=== PATIENT | male | born 2000 ===

== ENCOUNTER 2019-09-25 19:28 | Emergency (ER) | payer SELFPAY ==
[2019-09-25 20:11] LABS: Absolute Lymphocytes (CBC) 1.4 K/uL (0.7-4.9); Basophils % 0.6 % (0-1.3); Hematocrit 40.5 % (39.6-49.0); Lymphocytes % 24.9 % (15.3-44.8); MPV 9.8 fL (7.6-11.3); RBC Red Blood Cell Count 4.28 M/uL (4.33-5.43)
[2019-09-25 20:15] LABS: Protime INR 1.02
[2019-09-25 20:17] LABS: Urine Blood 2+ (NEG); Urine Glucose NEGATIVE (NEG); Urine Protein 1+ (NEG); Urine Specific Gravity 1.025 (1.005-1.030); Urine pH 5.5 (5.0-7.0)
[2019-09-25 20:30] LABS: ALT/SGPT 15 U/L (12-78); AST/SGOT 15 U/L (15-37); Albumin 3.9 g/dL (3.4-5.0); Alkaline Phosphatase 60 U/L (45-117); BUN Blood Urea Nitrogen 9 mg/dL (7-18); Bicarbonate 22 mmol/L (21-32); Bilirubin Direct 0.2 mg/dL (0-0.2); Bilirubin Total 0.8 mg/dL (0.2-1.0); CKMB Creatine Kinase MB < 1.0 ng/mL (0.3-3.6); Creatine Phosphokinase 86 U/L (39-308); Glucose Level 104 mg/dL (74-106); Lipase 78 U/L (73-393); Magnesium 2.5 mg/dL (1.8-2.4); Potassium 3.4 mmol/L (3.5-5.1); Sodium Level 138 mmol/L (136-145); Troponin (Emerg Dept Use Only) < 0.02 ng/mL (0.0-0.045)
[2019-09-25 20:49] LABS: Barbiturates NEGATIVE (NEGATIVE); Benzodiazepines NEGATIVE (NEGATIVE); Cocaine NEGATIVE (NEGATIVE); METHAMPHETAM NEGATIVE (NEGATIVE); Methadone NEGATIVE (NEGATIVE); Opiates NEGATIVE (NEGATIVE); Phencyclidine NEGATIVE (NEGATIVE); THC Cannibis POSITIVE (NEGATIVE)
[2019-09-25] MEDS ORDERED: DIVALPROEX DR 250 MG TAB PO ONE (21:04)
--- NOTE | 2019-09-25 22:29 | ER ---
Nurse's Notes [facility] Name: Zach Kaur Age: 19 yrs Sex: Male : 2000 Arrival Date: 09/25/2019 Time: 19:33 Bed 24 Private MD: Diagnosis: Epilepsy and recurrent seizures Presentation: 09/24 19:35 Chief complaint: EMS states: patient while driving home had a seizure an hour ago rr5 witnessed by his family member. last attack of seizure about couple of years ago. months ago his medication run out, just recently he got filled the medication. Coronavirus screen: Proceed with normal triage. Ebola Screen: Patient negative for fever greater than or equal to 101.5 degrees Fahrenheit, and additional compatible Ebola Virus Disease symptoms Patient denies exposure to infectious person. Patient denies travel to an Ebola-affected area in the 21 days before illness onset. Initial Sepsis Screen: Does the patient meet any 2 criteria? No. Patient's initial sepsis screen is negative. Does the patient have a suspected source of infection? No. Patient's initial sepsis screen is negative. Risk Assessment: Do you want to hurt yourself or someone else? Patient reports no desire to harm self or others. Onset of symptoms was September 25, 2019. 19:35 Method Of Arrival: EMS: [facility] rr5 19:35 Acuity: ADALI 3 rr5 19:35 Note CBG from EMS 141 mg/Dl, T 99.0F. rr5 Triage Assessment: 20:48 General: Behavior is calm, cooperative. rv Historical: - Allergies: 19:35 No Known Allergies; rr5 - Home Meds: 19:35 divalproex oral oral [Active]; rr5 - PMHx: 19:35 Seizures; rr5 - PSHx: 19:35 None; rr5 - Immunization history:: Adult Immunizations unknown. - Social history:: Smoking status: Reported history of juuling and/or vaping. Screenin:48 Abuse screen: Denies threats or abuse. Denies injuries from another. Nutritional rv screening: No deficits noted. Tuberculosis screening: No symptoms or risk factors identified. Fall Risk None identified. Assessment: 20:00 General: Appears comfortable, Behavior is calm, cooperative. Pain: Denies pain. Neuro: rv Level of Consciousness is awake, alert, obeys commands, Oriented to person, place, time, situation. Cardiovascular: Patient's skin is warm and dry. Rhythm is sinus rhythm. Respiratory: Airway is patent Respiratory effort is even, unlabored, Breath sounds are clear bilaterally. Derm: Skin is intact. 21:00 Reassessment: Patient appears in no apparent distress at this time. No changes from rr5 previously documented assessment. Patient is alert, oriented x 3, equal unlabored respirations, skin warm/dry/pink. awaiting for results. 22:00 Reassessment: Patient appears in no apparent distress at this time. Patient and/or rr5 family updated on plan of care and expected duration. Pain level reassessed. Patient is alert, oriented x 3, equal unlabored respirations, skin warm/dry/pink. no seizure activity noted. 23:00 Reassessment: Patient appears in no apparent distress at this time. Patient is alert, rr5 oriented x 3, equal unlabored respirations, skin warm/dry/pink. discharge instruction given and explained without complaints made. Patient states symptoms have improved. Vital Signs: 19:35 BP 112 / 66; Pulse 84; Resp 19; Temp 98.1; Pulse Ox 96% ; Weight 54.43 kg; Height 5 ft. rr5 8 in. (172.72 cm); Pain 4/10; 20:00 BP 106 / 71; Pulse 69; Resp 15; Pulse Ox 100% ; rr5 20:49 BP 102 / 57; Pulse 67; Resp 13; Pulse Ox 96% on R/A; rv 21:56 BP 104 / 60; Pulse 62; Resp 14; Temp 98.; Pulse Ox 100% on R/A; sg 23:00 BP 110 / 75; Pulse 72; Resp 16; Pulse Ox 98% on R/A; rr5 19:35 Body Mass Index 18.25 (54.43 kg, 172.72 cm) rr5 Vivek Coma Score: 20:48 Eye Response: spontaneous(4). Verbal Response: oriented(5). Motor Response: obeys rv commands(6). Total: 15. ED Course: 19:33 Patient arrived in ED. rr5 19:35 Kvng Waddell RN is Primary Nurse. rr5 19:35 Maintain EMS IV. Dressing intact. Good blood return noted. Site clean \T\ dry. Gauge \T\ rr 5 site: G18 right AC. 19:38 Triage completed. rr5 19:40 Arm band placed on right wrist. rr5 19:41 Freddie Flores MD is Attending Physician. tw4 20:48 Patient has correct armband on for positive identification. Placed in gown. Bed in low rv position. Call light in reach. Side rails up X2. Seizure precautions initiated. radiation monitor on. Pulse ox on. NIBP on. 20:50 Primary Nurse role handed off by Kvng Waddell RN rv 20:50 Sang Eisenberg RN is Primary Nurse. rv 20:56 Kvng Waddell RN is Primary Nurse. rr5 21:42 Primary Nurse role handed off by Kvng Waddell RN sg 21:42 Brian Urban RN is Primary Nurse. sg 22:28 Anoop Felton MD is Referral Physician. tw4 23:04 No provider procedures requiring assistance completed. IV discontinued, intact, sg bleeding controlled, No redness/swelling at site. Pressure dressing applied. Administered Medications: 20:54 CANCELLED (Physician Discretion): Depakene 500 mg PO once tw4 20:57 Drug: Depakote 500 mg Route: PO; rr5 22:00 Follow up: Response: No adverse reaction rr5 Outcome: 22:28 Discharge ordered by . tw4 23:04 Discharged to home via wheelchair, with family. sg 23:04 Condition: good 23:04 Discharge instructions given to patient, Instructed on discharge instructions, follow up and referral plans. safety practices, Demonstrated understanding of instructions, follow-up care, Prescriptions given X 1. 23:06 Patient left the ED. sg Signatures: Brian Urban RN RN Freddie Flores MD MD tw4 Sang Eisenberg RN RN Kvng Waddell RN RN rr5
--- NOTE | 2019-09-25 22:29 | EDPHYS ---
Physician Documentation [facility] Name: Zach Kuar Age: 19 yrs Sex: Male : 2000 Arrival Date: 09/25/2019 Time: 19:33 Bed 24 Private MD: ED Physician Freddie Flores HPI: 09/24 22:16 This 19 yrs old Male presents to ER via EMS with complaints of Seizure. tw4 22:16 The patient presents after having a single isolated seizure. Character of seizure(s): tw4 Loss of consciousness: it is not known if the patient experienced loss of consciousness, Motor activity: generalized, Incontinence: Apnea: it is not know whether or not the patient experienced apnea, Circulation: it is unknown whether or not the patient experienced a disturbance in pulse, Eye movements: are unknown. Seizure onset: just prior to arrival. Context: the seizure(s) was witnessed, by a significant other. Seizure Hx: Original onset: longstanding, Usual frequency: irregular frequency. Associated injury: The patient did not suffer any apparent associated injury. Current symptoms: Currently, the patient is not experiencing any symptoms. The patient has not experienced similar symptoms in the past. Historical: - Allergies: 19:35 No Known Allergies; rr5 - Home Meds: 19:35 divalproex oral oral [Active]; rr5 - PMHx: 19:35 Seizures; rr5 - PSHx: 19:35 None; rr5 - Immunization history:: Adult Immunizations unknown. - Social history:: Smoking status: Reported history of juuling and/or vaping. ROS: 22:16 Constitutional: Negative for fever, chills, and weight loss, Eyes: Negative for injury, tw4 pain, redness, and discharge, Cardiovascular: Negative for chest pain, palpitations, and edema, Respiratory: Negative for shortness of breath, cough, wheezing, and pleuritic chest pain, Abdomen/GI: Negative for abdominal pain, nausea, vomiting, diarrhea, and constipation, Back: Negative for injury and pain, Skin: Negative for injury, rash, and discoloration. 22:16 Neuro: Positive for seizure activity, Negative for altered mental status, dizziness, gait disturbance, headache, hearing loss, tinnitus, tremor, visual changes, weakness. Exam: 22:26 Constitutional: This is a well developed, well nourished patient who is awake, alert, tw4 and in no acute distress. Head/Face: Normocephalic, atraumatic. Chest/axilla: Normal chest wall appearance and motion. Nontender with no deformity. No lesions are appreciated. Cardiovascular: Regular rate and rhythm with a normal S1 and S2. No gallops, murmurs, or rubs. Normal PMI, no JVD. No pulse deficits. Respiratory: Lungs have equal breath sounds bilaterally, clear to auscultation and percussion. No rales, rhonchi or wheezes noted. No increased work of breathing, no retractions or nasal flaring. Abdomen/GI: Soft, non-tender, with normal bowel sounds. No distension or tympany. No guarding or rebound. No evidence of tenderness throughout. Skin: Warm, dry with normal turgor. Normal color with no rashes, no lesions, and no evidence of cellulitis. MS/ Extremity: Pulses equal, no cyanosis. Neurovascular intact. Full, normal range of motion. Neuro: Awake and alert, GCS 15, oriented to person, place, time, and situation. Cranial nerves II-XII grossly intact. Motor strength 5/5 in all extremities. Sensory grossly intact. Cerebellar exam normal. Normal gait. Vital Signs: 19:35 BP 112 / 66; Pulse 84; Resp 19; Temp 98.1; Pulse Ox 96% ; Weight 54.43 kg; Height 5 ft. rr5 8 in. (172.72 cm); Pain 4/10; 20:00 BP 106 / 71; Pulse 69; Resp 15; Pulse Ox 100% ; rr5 20:49 BP 102 / 57; Pulse 67; Resp 13; Pulse Ox 96% on R/A; rv 21:56 BP 104 / 60; Pulse 62; Resp 14; Temp 98.; Pulse Ox 100% on R/A; sg 23:00 BP 110 / 75; Pulse 72; Resp 16; Pulse Ox 98% on R/A; rr5 19:35 Body Mass Index 18.25 (54.43 kg, 172.72 cm) rr5 [place] Coma Score: 20:48 Eye Response: spontaneous(4). Verbal Response: oriented(5). Motor Response: obeys rv commands(6). Total: 15. MDM: 20:54 Patient medically screened. tw4 22:26 Differential diagnosis: drug overdose, seizure, syncope. Data reviewed: vital signs, [facility] nurses notes. Data reviewed: lab test result(s), CBC, drug level(s), valproic acid, electrolytes. Data interpreted: Pulse oximetry: Interpretation: normal. Counseling: I had a detailed discussion with the patient and/or guardian regarding: the historical points, exam findings, and any diagnostic results supporting the discharge/admit diagnosis, lab results. Special discussion: I discussed with the patient/guardian in detail that at this point there is no indication for admission to the hospital. It is understood, however, that if the symptoms persist or worsen the patient needs to return immediately for re-evaluation. 09/24 19:43 Order name: UDS [facility] 09/24 19:43 Order name: Basic Metabolic Panel [facility] 09/24 19:43 Order name: CBC with Diff [facility] 09/24 19:43 Order name: Ckmb [facility] 09/24 19:43 Order name: CPK [facility] 09/24 19:43 Order name: Hepatic Function [facility] 09/24 19:43 Order name: Lipase [facility] 09/24 19:43 Order name: Magnesium [facility] 09/24 19:43 Order name: Protime (+inr) [facility] 09/24 19:43 Order name: Ptt, Activated [facility] 09/24 19:43 Order name: Troponin (emerg Dept Use Only) [facility] 09/24 19:44 Order name: Urine Drug Screen [facility] 09/24 19:51 Order name: Glucose, Ancillary Testing [facility] 09/24 20:06 Order name: Urine Dipstick--Ancillary (enter results) [facility] 09/24 19:43 Order name: Cardiac monitoring; Complete Time: 19:43 [facility] 09/24 19:43 Order name: IV Saline Lock; Complete Time: 19:43 [facility] 09/24 19:43 Order name: Labs collected and sent; Complete Time: 19:43 [facility] 09/24 19:43 Order name: NPO; Complete Time: 19:43 [facility] 09/24 19:43 Order name: O2 Per Protocol; Complete Time: 19:44 [facility] 09/24 19:43 Order name: O2 Sat Monitoring; Complete Time: 19:44 [facility] 09/24 19:43 Order name: Urine Dipstick-Ancillary (obtain specimen); Complete Time: 20:20 [facility] 09/24 20:56 Order name: Valproic Acid (Depakene) Level; Complete Time: 22:13 [facility] 09/24 22:13 Interpretation: Normal except: VALP 21.0. tw4 Administered Medications: 20:54 CANCELLED (Physician Discretion): Depakene 500 mg PO once tw4 20:57 Drug: Depakote 500 mg Route: PO; rr5 22:00 Follow up: Response: No adverse reaction rr5 Disposition: 09/25/19 22:28 Discharged to Home. Impression: Epilepsy and recurrent seizures. - Condition is Stable. - Discharge Instructions: Seizure, Adult. - Prescriptions for Depakote 500 mg Oral Tablet - take 1 tablet by ORAL route every 12 hours; 60 tablet. - Medication Reconciliation Form, Thank You Letter, Antibiotic Education, Prescription Opioid Use form. - Follow up: Private Physician; When: Upon discharge from the Emergency Department; Reason: Recheck today's complaints, Continuance of care, Re-evaluation by your physician. Follow up: Anoop Felton MD; When: Upon discharge from the Emergency Department; Reason: Recheck today's complaints, Continuance of care, Re-evaluation by your physician. - Problem is an ongoing problem. - Symptoms have improved. Signatures: Dispatcher [employer] [facility] Brian Urban RN RN Freddie Flores MD MD tw4 Kvng Waddell RN RN rr5 Corrections: (The following items were deleted from the chart) 20:54 20:54 Depakene 500 mg PO once ordered. tw4 tw4 20:55 20:54 VALPROIC ACID (DEPAKOTE)+C.LAB.BRZ ordered. [facility] 22:28 22:28 09/25/2019 22:28 Discharged to Home. Impression: Epilepsy and recurrent seizures. tw4 Condition is Stable. Forms are Medication Reconciliation Form, Thank You Letter, Antibiotic Education, Prescription Opioid Use. Follow up: Private Physician; When: Upon discharge from the Emergency Department; Reason: Recheck today's complaints, Continuance of care, Re-evaluation by your physician. Problem is an ongoing problem. Symptoms have improved. tw4 23:06 22:28 09/25/2019 22:28 Discharged to Home. Impression: Epilepsy and recurrent seizures. Condition is Stable. Forms are Medication Reconciliation Form, Thank You Letter, Antibiotic Education, Prescription Opioid Use. Follow up: Private Physician; When: Upon discharge from the Emergency Department; Reason: Recheck today's complaints, Continuance of care, Re-evaluation by your physician. Follow up: Anoop Felton; When: Upon discharge from the Emergency Department; Reason: Recheck today's complaints, Continuance of care, Re-evaluation by your physician. Problem is an ongoing problem. Symptoms have improved. tw4
[2019-09-25 23:15] VITALS: BP 104/60; TEMP 98; O2SAT 100
== END 2019-09-25 23:06 | disposition home or self-care (01) ==
LOC: ER 19:28
DX: G40.802 Other epilepsy, not intractable, without status epilepticus (principal)
CPT/HCPCS: 36415; 80048; 80076; 80164; 80307; 81003; 82550; 82553; 82947; 83690; 83735; 84484; 85025; 85610; 85730; 93005; 99284